=== PATIENT | male | born 1990 | race African-American/Black ===

== ENCOUNTER 2019-09-26 17:53 | Emergency (ER) | payer OTHER ==
[~2019-09-26] VITALS: Ht 198.1 cm; Wt 83.0 kg
[2019-09-26] MEDS ORDERED: AMOXICILLIN 50500 MG PO ×2 (18:27→18:53)
[2019-09-26] MEDS ORDERED: HYDROCODON-ACE1 EAC7 PO ×2 (18:27→18:53)
[2019-09-26] MEDS ORDERED: LIDOCAINE VISC100 ML SWISH&SPIT ×2 (18:27→18:53)
[2019-09-26 18:35] VITALS: BP 123/82
== END 2019-09-26 18:35 | disposition home or self-care (01) ==
LOC: M.ERS 17:53
DX: K04.7 Periapical abscess without sinus (principal); Z91.018 Allergy to other foods; Z91.030 Bee allergy status; Z88.7 Allergy status to serum and vaccine